=== PATIENT | female | born 1980 | race Hispanic/Latino ===

== ENCOUNTER 2020-11-08 17:44 | Observation (INO) | payer OTHER ==
[~2020-11-08] VITALS: Ht 165.1 cm; Wt 98.5 kg
[~2020-11-08 17:44] MED LIST: LISINOPRIL10 MG PO; SUBOXONE 8 MG-1 EAC2 SL
[2020-11-08] MEDS ORDERED: ONDANSETRON HCL INJ 2MG/ML 2ML 2 MG/ML VIAL IV STA (17:47)
[2020-11-08] MEDS ORDERED: KETOROLAC TROMETHAMINE 30 MG/ML VIAL IV STA (17:47)
[2020-11-08 17:56] LABS: BASOPHILS % 0.3 % (0.0-1.0); EOSINOPHILS # (AUTO) 0.3 (0.0-0.4); EOSINOPHILS % 2.8 % (0.0-6.0); HEMOGLOBIN 12.5 g/dL (12.0-16.0); LYMPHOCYTES # (AUTO) 2.4 (1.0-3.2); LYMPHOCYTES % 24.9 % (18.0-39.1); MEAN CORPUSCULAR HEMOGLOBIN 32.6 pg (28-32); MEAN CORPUSCULAR HGB CONC 33.8 g/dL (31-35); MEAN CORPUSCULAR VOLUME 96.6 fL (81-99); MONOCYTES # (AUTO) 0.6 (0.2-0.8); MONOCYTES % 6.5 % (4.4-11.3); NEUTROPHILS # (AUTO) 6.3 (2.1-6.9); NEUTROPHILS % 64.7 % (38.7-80.0); PLATELET COUNT 196 x10e3/uL (140-360); RED BLOOD COUNT 3.83 x10e6/uL (3.6-5.1); RED CELL DISTRIBUTION WIDTH 12.7 % (11.7-14.4)
[2020-11-08] MEDS ORDERED: KETOROLAC TROMETHAMINE 30 MG/ML VIAL ONE (17:59)
[2020-11-08] MEDS ORDERED: ONDANSETRON HCL INJ 2MG/ML 2ML 2 MG/ML VIAL ONE (18:00)
[2020-11-08] MEDS ORDERED: LISINOPRIL20 MG PO (18:09)
[2020-11-08] MEDS ORDERED: CIMZIA400 MG/2 M SQ (18:09)
[2020-11-08] MEDS ORDERED: LEVOTHYROXINE88 MCG PO (18:09)
[2020-11-08] MEDS ORDERED: SERTRALINE HCL100 MG PO (18:09)
[2020-11-08] MEDS ORDERED: LINZESS290 MCG PO (18:09)
[2020-11-08] MEDS ORDERED: TIZANIDINE HCL4 MG PO (18:09)
[2020-11-08 18:16] LABS: ALANINE AMINOTRANSFERASE 15 IU/L (0-55); ALBUMIN/GLOBULIN RATIO 1.2 (0.8-2.0); ALKALINE PHOSPHATASE 68 IU/L (40-150); ANION GAP 16.2 mmol/L (8-16); BLOOD UREA NITROGEN 12 mg/dL (7-26); BUN/CREATININE RATIO 14 (6-25); CALCIUM 8.8 mg/dL (8.4-10.2); CARBON DIOXIDE 21 mmol/L (22-29); CHLORIDE 105 mmol/L (98-107); CREATININE, SERUM 0.85 mg/dL (0.57-1.11); EST GLOMERULAR FILTRATION RATE > 60 ML/MIN (60-); GLUCOSE 112 mg/dL (74-118); POTASSIUM 4.2 mmol/L (3.5-5.1); SODIUM 138 mmol/L (136-145)
[2020-11-08 18:17] LABS: AMYLASE 43 U/L (25-125)
[2020-11-08 18:20] LABS: LIPASE < 4 U/L (8-78)
[2020-11-08 18:21] LABS: CLARITY,URINE SL CLOUDY (CLEAR); COLOR,URINE ORANGE (YELLOW); LEUKOCYTE ESTERASE ,URINE NEGATIVE (NEGATIVE); NITRITE,URINE NEGATIVE (NEGATIVE); PROTEIN,URINE DIPSTICK 1+ (NEGATIVE)
[2020-11-08 18:22] LABS: KETONES,URINE TRACE (NEGATIVE)
[2020-11-08 18:24] LABS: BACTERIA,URINE FEW /HPF; EPITHELIAL CELLS,URINE FEW /LPF; MUCUS,URINE FEW (RARE); RBC,URINE 21-50 /HPF (0-5)
[2020-11-08 19:04] LABS: AMPHETAMINES SCREEN,URINE NEGATIVE (NEGATIVE); BENZODIAZEPINES SCREEN,URINE NEGATIVE (NEGATIVE); PHENCYCLIDINE SCREEN,URINE NEGATIVE (NEGATIVE)
[2020-11-08] MEDS ORDERED: CEFTRIAXONE SOD 1 GM VIAL IV SCH (20:00)
[2020-11-08] MEDS ORDERED: ONDANSETRON HCL INJ 2MG/ML 2ML 2 MG/ML VIAL IV PRN (20:00)
[2020-11-08] MEDS: CEFTRIAXONE SOD 1 GM in SODIUM CHLORIDE 0.9% 50ML 50 ML IV SCH (21:20)
[2020-11-08] MEDS: SODIUM CHLORIDE 0.9% 1000ML 1,000 ML IV SCH (21:20)
[2020-11-08] MEDS: TAMSULOSIN HCL 0.4 MG CAP PO SCH (21:27)
[2020-11-08 23:35] VITALS: BP 105/56
[2020-11-09] VITALS (8 sets, daily range): BP systolic 90–136; BP diastolic 52–68
[2020-11-09] MEDS ORDERED: NEURONTIN300 MG PO (01:18)
[2020-11-09] MEDS: KETOROLAC TROMETHAMINE 30 MG/ML VIAL IV PRN ×2 (03:30→20:05)
[2020-11-09] MEDS: SODIUM CHLORIDE 0.9% 1000ML 1,000 ML IV SCH ×3 (04:39→22:00)
[2020-11-09 04:46] LABS: BASOPHILS % 0.3 % (0.0-1.0); EOSINOPHILS # (AUTO) 0.2 (0.0-0.4); EOSINOPHILS % 1.9 % (0.0-6.0); HEMATOCRIT 30.9 % (34.2-44.1); HEMOGLOBIN 10.6 g/dL (12.0-16.0); LYMPHOCYTES # (AUTO) 2.7 (1.0-3.2); LYMPHOCYTES % 30.3 % (18.0-39.1); MEAN CORPUSCULAR HEMOGLOBIN 33.2 pg (28-32); MEAN CORPUSCULAR HGB CONC 34.3 g/dL (31-35); MEAN CORPUSCULAR VOLUME 96.9 fL (81-99); MONOCYTES # (AUTO) 0.7 (0.2-0.8); MONOCYTES % 7.6 % (4.4-11.3); NEUTROPHILS # (AUTO) 5.3 (2.1-6.9); NEUTROPHILS % 59.7 % (38.7-80.0); PLATELET COUNT 189 x10e3/uL (140-360); RED BLOOD COUNT 3.19 x10e6/uL (3.6-5.1); RED CELL DISTRIBUTION WIDTH 12.7 % (11.7-14.4)
[2020-11-09 05:07] LABS: BLOOD UREA NITROGEN 14 mg/dL (7-26); BUN/CREATININE RATIO 19 (6-25); CARBON DIOXIDE 24 mmol/L (22-29); CHLORIDE 107 mmol/L (98-107); CREATININE, SERUM 0.74 mg/dL (0.57-1.11); EST GLOMERULAR FILTRATION RATE > 60 ML/MIN (60-); GLUCOSE 125 mg/dL (74-118); SODIUM 138 mmol/L (136-145)
[2020-11-09] MEDS ORDERED: POLYETHYLENE GLYCOL 3350 17 GM PACK PO PRN (09:15)
[2020-11-09] MEDS ORDERED: HYDRALAZINE HCL 20 MG/ML VIAL IV PRN (09:15)
[2020-11-09] MEDS ORDERED: ACETAMINOPHEN 325 MG TAB PO PRN (09:15)
[2020-11-09] MEDS ORDERED: TEMAZEPAM 15 MG CAP PO PRN (09:15)
[2020-11-09] MEDS: DOCUSATE SODIUM 100 MG CAP PO SCH (16:59)
[2020-11-09] MEDS: FAMOTIDINE 20 MG TAB PO SCH (16:59)
[2020-11-09] MEDS: CEFTRIAXONE SOD 1 GM in SODIUM CHLORIDE 0.9% 50ML 50 ML IV SCH (20:05)
[2020-11-09] MEDS: TAMSULOSIN HCL 0.4 MG CAP PO SCH (20:05)
[2020-11-10] VITALS: BP 96/66
[2020-11-10] MEDS ORDERED: CERTOLIZUMAB PEGOL 400 MG SQ SCH (02:30)
[2020-11-10 04:00] VITALS: BP 102/65
[2020-11-10 04:45] LABS: BASOPHILS % 0.3 % (0.0-1.0); EOSINOPHILS # (AUTO) 0.2 (0.0-0.4); EOSINOPHILS % 3.6 % (0.0-6.0); HEMATOCRIT 29.8 % (34.2-44.1); HEMOGLOBIN 9.9 g/dL (12.0-16.0); LYMPHOCYTES # (AUTO) 3.2 (1.0-3.2); LYMPHOCYTES % 54.2 % (18.0-39.1); MEAN CORPUSCULAR HEMOGLOBIN 32.5 pg (28-32); MEAN CORPUSCULAR HGB CONC 33.2 g/dL (31-35); MEAN CORPUSCULAR VOLUME 97.7 fL (81-99); MONOCYTES # (AUTO) 0.4 (0.2-0.8); MONOCYTES % 6.7 % (4.4-11.3); NEUTROPHILS # (AUTO) 2.1 (2.1-6.9); PLATELET COUNT 155 x10e3/uL (140-360); RED BLOOD COUNT 3.05 x10e6/uL (3.6-5.1); RED CELL DISTRIBUTION WIDTH 12.8 % (11.7-14.4)
[2020-11-10] MEDS: KETOROLAC TROMETHAMINE 30 MG/ML VIAL IV PRN (05:10)
[2020-11-10 05:14] LABS: ALANINE AMINOTRANSFERASE 9 IU/L (0-55); ALBUMIN 2.7 g/dL (3.5-5.0); ALBUMIN/GLOBULIN RATIO 1.1 (0.8-2.0); ALKALINE PHOSPHATASE 46 IU/L (40-150); BLOOD UREA NITROGEN 14 mg/dL (7-26); BUN/CREATININE RATIO 22 (6-25); CALCIUM 7.3 mg/dL (8.4-10.2); CARBON DIOXIDE 22 mmol/L (22-29); CHLORIDE 110 mmol/L (98-107); CHOL/HDL RATIO 3.6 (3.0-3.6); CHOLESTEROL 181 MD/DL (0-199); CREATININE, SERUM 0.65 mg/dL (0.57-1.11); EST GLOMERULAR FILTRATION RATE > 60 ML/MIN (60-); GLUCOSE 90 mg/dL (74-118); HDL CHOLESTEROL 50 MG/DL (40-60); LDL CHOLESTEROL 113 MG/DL (60-130); MAGNESIUM 1.7 MG/DL (1.3-2.1); PHOSPHORUS 3.2 MG/DL (2.3-4.7); SODIUM 140 mmol/L (136-145); TRIGLYCERIDES 92 MG/DL (0-149)
[2020-11-10 05:37] LABS: THYROID STIMULATING HORMONE 2.119 uIU/mL (0.350-4.940)
[2020-11-10] MEDS: SODIUM CHLORIDE 0.9% 1000ML 1,000 ML IV SCH ×2 (05:57→12:00)
[2020-11-10] MEDS ORDERED: LEVOTHYROXINE SODIUM 88 MCG TAB PO SCH (07:30)
[2020-11-10 07:38] VITALS: BP 101/59
[2020-11-10] MEDS: DOCUSATE SODIUM 100 MG CAP PO SCH (08:32)
[2020-11-10] MEDS: FAMOTIDINE 20 MG TAB PO SCH (08:32)
[2020-11-10 08:59] VITALS: BP 101/59
[2020-11-10] MEDS ORDERED: LISINOPRIL 20 MG TAB PO SCH (09:00)
[2020-11-10] MEDS ORDERED: TIZANIDINE HCL 4 MG TAB PO SCH (09:00)
[2020-11-10] MEDS ORDERED: LINACLOTIDE 145 MCG CAPSULE PO SCH (09:00)
[2020-11-10 11:19] VITALS: BP 97/59
[2020-11-10] MEDS ORDERED: FLOMAX0.4 MG PO (15:06)
[2020-11-10] MEDS ORDERED: ceftin PO (15:20)
[2020-11-10 15:24] VITALS: BP 124/77
[2020-11-10] MEDS ORDERED: SERTRALINE HCL 100 MG TAB PO SCH (21:00)
== END 2020-11-10 15:40 | disposition home or self-care (01) ==
LOC: ER 17:45 → ERHOLD 20:23 → MED/SURG 22:29
PROVIDERS: ADMIT Internal Medicine; ATTEND Internal Medicine
DX: N13.6 Pyonephrosis (principal); I10 Essential (primary) hypertension; E03.9 Hypothyroidism, unspecified; K21.9 Gastro-esophageal reflux disease without esophagitis; F11.20 Opioid dependence, uncomplicated; E66.9 Obesity, unspecified; Z68.36 Body mass index [BMI] 36.0-36.9, adult; Z88.0 Allergy status to penicillin; K58.9 Irritable bowel syndrome, unspecified; E83.51 Hypocalcemia; R80.9 Proteinuria, unspecified; R81 Glycosuria
CPT/HCPCS: 36415 ×3; 74176; 80048; 80053 ×2; 80061; 80307; 81001; 82150; 83036; 83690; 83735; 84100; 84443; 84702; 85025 ×3; 99284; G0378 ×3; J0696 ×2; J1885 ×3; J2405 ×2; J7030 ×3; U0002